=== PATIENT | female | born 1970 | race Caucasian/White ===

== ENCOUNTER 2017-06-15 07:33 | Inpatient (IN) | payer OTHER ==
[2017-05-18 11:18] VITALS: BMI 40.0
--- NOTE | 2017-05-18 11:44 | PAT Medication Instructions ---
Service Date May 18, 2017. Current Home Medication List Amlodipine Besylate-Benazepril (Lotrel), 1 CAP PO QAM Canagliflozin (Invokana), 1 TAB PO QAM Escitalopram Oxalate (Lexapro), 20 MG PO QAM Glipizide (Glipizide Er), 1 TAB PO QAM Hydrochlorothiazide (Hctz), 25 MG PO QAM Tramadol (Ultram), 50 MG PO Q8H PRN for Pain [vitamin pack], 1 DOSE PO DIRECTED Medication Instructions For Your Scheduled Surgery [vitamin pack], 1 DOSE PO DIRECTED (per surgeon instructions) - Hold the following medications the morning of surgery: Canagliflozin (Invokana), 1 TAB PO QAM Glipizide (Glipizide Er), 1 TAB PO QAM Hydrochlorothiazide (Hctz), 25 MG PO QAM - Take the following medications the morning of surgery with a sip of water: Tramadol (Ultram), 50 MG PO Q8H PRN for Pain (okay to take up to 4 hours prior to surgery if needed) Escitalopram Oxalate (Lexapro), 20 MG PO QAM Amlodipine Besylate-Benazepril (Lotrel), 1 CAP PO QAM - Take the following medications as scheduled the night before surgery: Tramadol (Ultram), 50 MG PO Q8H PRN for Pain (if needed) If you have any questions please call us at [phone] or [phone] or [phone]
--- NOTE | 2017-05-18 13:04 | DIAGNOSTIC IMAGING REPORT ---
CHEST 2 VIEWS ROUTINE CLINICAL HISTORY: Preoperative evaluation. COMPARISON STUDY: No previous studies for comparison. FINDINGS: Lung volumes are normal. No pneumothorax or pleural effusion is noted. Right costophrenic angle was not included. Pulmonary vascularity is normal. There is no consolidation. Cardiomediastinal silhouette is unremarkable. There are cholecystectomy clips. IMPRESSION: No acute cardiopulmonary findings. Electronically signed by: Amadou England M.D. 05/18/2017 1:03 PM Dictated Date/Time: 05/18/2017 1:02 PM
[2017-05-18 13:24] LABS: BASO % 0.4 %; BASO ABS # 0.03 K/uL (0-0.2); EOS % 4.3 %; EOS ABS # 0.31 K/uL (0-0.5); HEMATOCRIT 41.7 % (37-47); HEMOGLOBIN 14.5 g/dL (12.0-16.0); IG# 0.02 K/uL (0.00-0.02); LYMPH % 36.3 %; LYMPH ABS # 2.64 K/uL (1.2-3.4); MEAN CELL VOLUME 86.3 fL (80-100); MEAN CORPUSCULAR HGB CONC 34.8 g/dl (32-36); MONO % 6.9 %; NEUT % 51.8 %; NEUT ABS # 3.78 K/uL (1.4-6.5); PLATELET COUNT 347 K/uL (130-400); RED CELL DISTRIBUTION WIDTH CV 13.3 % (11.5-14.5); RED CELL DISTRIBUTION WIDTH SD 41.9 fL (36.4-46.3); WHITE BLOOD COUNT 7.28 K/uL (4.8-10.8)
[2017-05-18 13:34] LABS: INR 1.1 (0.9-1.1); PTT PATIENT 27.1 SECONDS (21.0-31.0)
[2017-05-18 13:36] LABS: ALBUMIN 3.8 gm/dl (3.4-5.0); CALCIUM 9.6 mg/dl (8.5-10.1); CREATININE 0.78 mg/dl (0.60-1.20)
[2017-05-18 14:04] LABS: HEMOGLOBIN A1C 7.1 % (4.5-5.6)
--- NOTE | 2017-06-01 15:37 | HISTORY & PHYSICAL EXAMINATION ---
DATE OF ADMISSION: 06/15/2017 CHIEF COMPLAINT: Right knee pain. HISTORY OF PRESENT ILLNESS: Ms. Dickens is a 47-year-old female with a multiple-year history of right knee pain. The patient rates her pain a 10/10. She has pain with her daily activities. She has limited standing and walking tolerance. Pain is worse with weightbearing. The patient has had injections, bracing, knee arthroscopy, PT and tramadol for the years without relief. She has failed conservative treatment and is scheduled for a right knee replacement. PAST MEDICAL HISTORY: Diabetes with unknown A1c and hypertension. The patient denies heart disease or DVT. PAST SURGICAL HISTORY: Meniscus repair, carpal tunnel release bilateral, x2, cholecystectomy. SOCIAL HISTORY: The patient denies alcohol or tobacco use. She lives in a 2-jazmine home. She is and works as a retail wireless sales consultant. FAMILY HISTORY: Negative for DVT. MEDICATIONS: Glipizide 10 mg, amlodipine 10/40 mg, hydrochlorothiazide 25 mg, escitalopram 20 mg, Invokana 100 mg, tramadol 50 mg, tramadol 50 mg. ALLERGIES: None. REVIEW OF SYSTEMS: See HPI. Ten other systems reviewed, all negative. PHYSICAL EXAMINATION: VITAL SIGNS: Height 5 feet 0 inches, weight 206 pounds, BMI 40. GENERAL: This is a well-developed, well-nourished female who is alert and oriented x3. Mood and affect are appropriate. HEENT: Normocephalic, atraumatic. Mucous membranes are moist and intact. NECK: Supple without lymphadenopathy. HEART: Regular rate and rhythm without murmurs, rubs or gallops. LUNGS: Clear to auscultation without wheezes or rhonchi. ABDOMEN: Soft and nontender. Bowel sounds are equal and active. EXTREMITIES: No ecchymosis, redness or warmth. The patient has a rash over her lower extremities that is scabbed. There is no drainage. The rash is located over the distal anterior tibia. Range of motion is from 3-110 degrees with no laxity. She has moderate effusion. She is neurovascularly intact. X-RAY EXAMINATION: AP and lateral views show joint space narrowing and osteophyte formation. IMPRESSION: 1. Degenerative joint disease, right knee. 2. Diabetes. PLAN: The patient will be admitted for a right total knee arthroplasty pending her A1c results due to her BMI, current rash and potentially high A1c. The patient is at high risk. If her A1c is above 7.5, she may be postponed until she has adequate glycemic control. Otherwise, we will plan on aspirin for DVT prophylaxis and outpatient physical therapy.
[~2017-06-15] VITALS: Ht 152.4 cm; Wt 94.0 kg
[2017-06-15] VITALS (9 sets, daily range): BP systolic 99–127; BP diastolic 62–79; PULSE 73–99; TEMP 36.7–37.2; O2SAT 93–98; BMI 40.0
[2017-06-15] MEDS: TRANEXAMIC ACID INJ 1,000 MG x 2 Bags IV SCH ×4 (06:30→10:55)
[~2017-06-15 07:33] MED LIST: ACETAMINOPHEN 500 MG TAB PO SCH; AMLO10CA2 PO; BUPIVACAINE 0.25% 30 ML VIAL ONE; BUPIVACAINE 0.5 % 5 MG/1 ML PF 10ML VIAL ONE; CANA1TAB PO; CEFAZOLIN 2000MG IV PUSH 15 ML IV SCH; CeleBREX 200 MG CAP PO SCH; DEXAMETHASONE 4 MG TAB PO SCH; ESCI1TAB10 PO; FAMOTIDINE 20 MG TAB PO SCH; FENTANYL CITRATE INJ 50 MCG/1 ML 2 ML VIAL ONE; GABAPENTIN 900 MG PO SCH; GLIP-199 PO; HYDR25TA4 PO; LACTATED RINGER'S 1000ML 1,000 ML IV SCH; LIDOCAINE HCL 2% 2 ML VIAL (20MG/ML) ONE; METOCLOPRAMIDE HCL 10 MG TAB PO SCH; MIDAZOLAM HCL 1 MG/ML 2ML VIAL ONE; ONDANSETRON INJ 2 MG/ML 2 ML VIAL ONE; PROPOFOL IV EMULSION 10 MG/ML 20 ML VIAL IV ONE; ROPIVACAINE 5MG/ML 30 ML 150 MG, BUPIVACAINE 0.5% MPF INJ 30 ML, EpINEphrine HCL INJ 0.... INFIL SCH; TRAM-10 PO; VITAMIN PACK PO
--- NOTE | 2017-06-15 08:52 | History & Physical Bridge Note ---
H&P Re-Evaluation Bridge Note: I have examined the patient, reviewed the History & Physical and in the interval since the performance of the History & Physical I have noted the following changes of clinical significance: No changes noted
[2017-06-15] MEDS ORDERED: POVIDONE-IODINE OP SOLN 30 ML BTL ONE (09:31)
[2017-06-15] MEDS ORDERED: ORTHO JOINT ANESTHETIC ONE (09:31)
[2017-06-15] MEDS ORDERED: BACITRACIN 50000 UNIT VIAL ONE (09:31)
[2017-06-15] MEDS ORDERED: FENTANYL CITRATE INJ 50 MCG/1 ML 2 ML VIAL IV PRN (10:30)
[2017-06-15] MEDS ORDERED: ATROPINE SULFATE 0.1 MG/ML 5ML SYR IV PRN (10:30)
[2017-06-15] MEDS ORDERED: EpHEDrine SULFATE INJ 50 MG/ML AMP IV PRN (10:30)
[2017-06-15] MEDS ORDERED: ONDANSETRON INJ 2 MG/ML 2 ML VIAL IV PRN ×2 (10:30→13:00)
[2017-06-15] MEDS ORDERED: SODIUM CHLORIDE 0.9% INJ 10 ML VIAL ONE (11:54)
[2017-06-15] MEDS ORDERED: EpINEphrine INJ 1MG/ML AMP 1 MG/ML AMP ONE (11:54)
[2017-06-15] MEDS ORDERED: PHENYLEPHRINE 100MCG/ML 5ML SYR ONE (12:33)
--- NOTE | 2017-06-15 12:34 | [facility] Post Operative Brief Note ---
Immediate Operative Summary Operative Date Jun 15, 2017. Pre-Operative Diagnosis Degenerative Joint Disease Right Knee Post-Operative Diagnosis Degenerative Joint Disease Right Knee Procedure(s) Performed Right Total Knee Arthroplasty Uncemented, patella cemented Surgeon Dr Girard Blankbook Forwarder Surgeon(s) Luis Vega PA-C Estimated Blood Loss 10cc Findings Consistent with Post-Op Diagnosis Specimens As Per Surgeon A. Right Knee Bone and Tissue Anesthesia Type MAC Spinal Regional Complication(s) none Disposition Accompanied Pt To Recover: no Disposition: Recovery Room / PACU
--- NOTE | 2017-06-15 12:42 | OPERATIVE REPORT ---
DATE OF OPERATION: 06/15/2017 PREOPERATIVE DIAGNOSIS: Osteoarthritis right knee. POSTOPERATIVE DIAGNOSIS: Osteoarthritis right knee. PROCEDURE: Right total knee arthroplasty. SURGEON: Dr. Girard. TRUCK REPAIR SERVICE ESTIMATOR: Luis Vega PA-C. ANESTHESIA: Spinal. COMPLICATIONS: None. OPERATION AND FINDINGS: Following induction of spinal anesthesia, the patient's right leg was prepped and draped in the usual sterile manner. Limb was exsanguinated with an Esmarch bandage and tourniquet was inflated to 350 mmHg. A longitudinal incision was made anteriorly. Subcutaneous tissue was sharply dissected. Electrocautery was used for hemostasis. Prepatellar bursa was incised and median parapatellar incision was performed. Patella was everted and the knee was flexed. Fat pad was removed to aid in visualization and the anterior and posterior cruciate ligaments were removed. The medial face of the tibia was cleared of soft tissue first with a Bovie and a Martinez elevator. This tissue was retracted posteriorly using a blunt Hohmann. A Willingham retractor was used to expose the synovium above on the anterior aspect of the femur and this was removed down to bone. The PSI guide was placed on the distal femur and two pins were placed anteriorly and kept in position and two additional pins were placed distally and removed. The distal femoral cutting block was placed in position and the distal femoral cut was used in the +0 setting. Next, the cutting block was removed and the 3 uncemented block was placed in the distal end of the femur. Care was taken to ensure appropriate external rotation and feeler gauge was used to ensure no notching would occur. The femoral block was centered on the distal femur and in the medial and lateral direction and was fixed using two bone screws. The gold pins were then removed. The oscillating saw was used to create the bone cuts and the distal femoral cutting block was removed and the reciprocating saw was used to further trim the femoral cuts as well as a deep in the area for the trochlear groove. Next, posterior condyle remnants were removed. Following this, a meniscal clamp and knife were utilized to remove the anterior portion of both medial and lateral meniscus. The proximal tibia PSI guide was placed into position and the proximal tibial cutting guide was screwed into position. The extra medullary alignment guide was utilized to ensure appropriate alignment. The proximal tibia was cut and the proximal tibial cutting block was removed and this bone fragment was removed. The appropriate guide was used to perform the notch cut on the distal femur and a lamina supervisor of operations and a cochlear knife were utilized to finish both medial and lateral meniscectomies to remove any remnants of the posterior or anterior cruciate ligaments. Following this, the distal femoral component was impacted into position and blunt Alee was used to sublux the tibia anteriorly. The proximal tibia was sized and a 2 uncemented tibial tray was chosen as the size to be used. This was put into position and appropriate external rotation and a double check with extramedullary alignment guide was performed. The canal for the tibial stem was prepared first with a 17 mm drill and then the punch and a mallet and the trial tibial poly was placed. A 9 was chosen the size to be used. It was brought to extension and the patella was prepared with the patellar reamer. A 33 cemented component was chosen the size to be used. The trial component was placed and knee was taken through a full range of motion and there was found to be no lateral subluxation of the tibia. No lateral release was required. The trials were all removed. The final components were obtained and assembled. Cement was mixed. The knee was thoroughly irrigated and the ortho mix was injected about the knee joint. The final components were cemented into position. After thoroughly suctioning and drying the bone ends, all excess cement was removed. The knee was held in extension while the cement hardened. The wound was irrigated and closed over a Hemovac drain. #1 Vicryl was used to close the extensor mechanism. Subcutaneous tissues closed using 0 Dexon. Skin was closed with marcia. Sterile dressing of Adaptic, 4 x 4's, sterile Webril, and Deepak was applied. The patient tolerated the procedure well, recovery room stable. Due to the complex nature of the procedure, the entire surgery was performed with the operational assistance of Luis Vega PA-C. The public services assistant, under direct supervision, was involved in the actual performance of all aspects of the surgical procedure including hemostasis, tissue retraction and incision, instrument management, patient positioning, and wound closure. I attest to the content of the Intraoperative Record and any orders documented therein. Any exception s are noted below.
[2017-06-15] MEDS ORDERED: METOCLOPRAMIDE HCL INJ 5 MG/ML 2 ML VIAL IV PRN (13:00)
[2017-06-15] MEDS ORDERED: CEFAZOLIN IV 2,000 MG in DEXTROSE 5% 50ML 50 ML IV SCH (13:00)
[2017-06-15] MEDS ORDERED: MoRPHine SULFATE 2 MG/ML CARP IV PRN (13:00)
[2017-06-15] MEDS ORDERED: ALUMINUM/MAGNESIUM/SIMETH (MAALOX MAX) 30 ML UDC PO PRN (13:00)
[2017-06-15] MEDS ORDERED: MAGNESIUM HYDROXIDE SUSP 30 ML UDC PO PRN (13:00)
[2017-06-15] MEDS ORDERED: ZOLPIDEM TARTRATE 5 MG TAB PO PRN (13:00)
--- NOTE | 2017-06-15 13:33 | DIAGNOSTIC IMAGING REPORT ---
R KNEE 1 OR 2 VIEWS ROUTINE CLINICAL HISTORY: AP/LATERAL IN PACU RIGHT KNEE COMPARISON: None. DISCUSSION: Evidence for a total right knee arthroplasty. Good contact between prosthetic and underlying bone. Surgical drains are in position. Expected soft tissue postoperative change IMPRESSION: Anatomic alignment posttotal right knee arthroplasty. The above report was generated using voice recognition software. It may contain grammatical, syntax or spelling errors. Electronically signed by: Randall Javed M.D. 06/15/2017 1:31 PM Dictated Date/Time: 06/15/2017 1:31 PM
[2017-06-15] MEDS ORDERED: PHARMACY GLYCEMIC MGMT CONSULT PRN (14:10)
[2017-06-15] MEDS ORDERED: DEXTROSE 50% 50 ML SYR IV PRN (14:15)
[2017-06-15] MEDS ORDERED: GLUCOSE 10 TABS/TUBE PO PRN (14:15)
[2017-06-15] MEDS ORDERED: GLUCAGON FOR INJ 1 MG VIAL SQ PRN (14:15)
[2017-06-15] MEDS ORDERED: GLUCOSE 40% GEL 15 GM TUBE PO PRN (14:15)
--- NOTE | 2017-06-15 14:24 | Anesthesiology Progress Note ---
Anesthesia Post Op Note Date & Time Jun 15, 2017 at 14:24 Vital Signs Pain Intensity: 0 Vital Signs Past 12 Hours Date Time Temp Pulse Resp B/P (MAP) Pulse Ox O2 Delivery O2 Flow Rate FiO2 06/15/17 14:10 83 16 105/62 96 Nasal Cannula 2 06/15/17 13:55 90 18 104/50 95 Nasal Cannula 2 06/15/17 13:40 88 18 109/65 95 Nasal Cannula 2 06/15/17 13:25 37.0 82 21 100/61 96 Nasal Cannula 2 06/15/17 13:15 9 17 106/61 96 Nasal Cannula 2 06/15/17 13:05 93 19 97/56 95 Nasal Cannula 2 06/15/17 12:59 37.0 97 16 98/51 95 Nasal Cannula 2 06/15/17 08:25 36.8 73 20 127/79 95 Room Air Notes Mental Status: alert / awake / arousable, participated in evaluation Pt Amnestic to Procedure: Yes Nausea / Vomiting: adequately controlled Pain: adequately controlled Airway Patency, RR, SpO2: stable & adequate BP & HR: stable & adequate Hydration State: stable & adequate Neuraxial Anesthesia: was administered, sensory block is resolving Anesthetic Complications: no major complications apparent
[2017-06-15] MEDS ORDERED: INSULIN GLARGINE SOLOSTAR 100 UNITS/ML 3 ML PEN SC SCH (15:00)
[2017-06-15] MEDS ORDERED: MoRPHine SULFATE 4 MG/ML 1 ML CARP\\VIAL IV PRN (15:00)
--- NOTE | 2017-06-15 15:29 | Pharmacy Progress Note ---
Glycemic Control Intl Consult Date of Service Jun 15, 2017. Scope Glycemic Pharmacist consulted by Luis Vega on 06/15/17 for glycemic control and to write orders per [facility] inpatient glycemic control protocol Objective Weight (Kilograms): 94.000 Accuchecks BSG (last 24hrs): Test 06/15/17 08:02 06/15/17 13:05 06/15/17 15:02 Bedside Glucose 132 mg/dl (70-90) 171 mg/dl (70-90) 199 mg/dl (70-90) Recent Pertinent Medications Outpatient Anti-diabetic Regimen: * Invokana 100 mg PO daily + Glipizide XR 10 mg PO daily * A1c = 7.1 % 05/18/17 Risk Factors for Insulin Resistance: * Steroids: dexamethasone 8 mg PO prior to surgery * Recent Surgery: POD 0 for knee surgery * Diet: Type 2 diabetic diet Assessment & Plan ASSESSMENT: * Ms Dickens is a 47 y/o F admitted for knee surgery. She has a PMH of reasonably controlled type 2 diabetes. The patient received 8 mg of dexamethasone prior to surgery. Her blood sugar prior to surgery was 132 mg/dL. Her HbA1C is reasonably well controlled. * Will schedule full weight-based stress of 2 Lantus dosing for tonight then determine tomorrow's Lantus dose based upon response. Will not give additional Lantus dose tonight since patient is receiving Lantus dose late today. Novolog will be weight-based stress of 3 with overnight acchuchecks. * Pt is maintained on oral antidiabetic agents as an outpatient * Oral agents are not recommended for inpatient use d/t drug interactions, changing PO intake, and difficulty titrating for acute hyper/hypoglycemia. ADA recommends re-initiating outpatient oral agents 1-2 days prior to discharge if/ when appropriate if they were held on admission. * Will hold oral agents for admission and utilize SQ basal bolus insulin regimen which is the recommended regimen for inpatient glycemic control. * Will initiate weight based insulin dosing for insulin le patient and titrate based on BSG trends. PLAN FOR INPATIENT GLYCEMIC CONTROL: * Holding outpatient oral diabetes medications * Basal insulin with LANTUS 32 units SQ x 1 * Correctional Insulin with NOVOLOG per scale ACHS or Q6hrs while NPO * Goal Range: Low 110 mg/dL - High 140 mg/dL * Correction Factor: 15 mg/dL/unit * Nutritional / Prandial insulin per carb ratio of 1 unit per 6 grams CHO consumed * Please note that the plan above was derived based on current level of insulin resistance and hospital stress. These recommendations are appropriate for inpatient admission only. Plan of care upon discharge will need to be reassessed to avoid potential outpatient hypo/hyperglycemia. Thank you.
[2017-06-15] MEDS: INSULIN ASPART 100 UNITS/ML 3 ML PEN SC SCH ×3 (16:19→22:07)
[2017-06-15] MEDS: ACETAMINOPHEN 500 MG TAB PO SCH ×2 (16:21→21:58)
[2017-06-15] MEDS: SODIUM CHLORIDE 0.9% 1000ML 1,000 ML IV SCH (16:22)
[2017-06-15] MEDS: KETOROLAC TROMETHAMINE 30 MG/ML VIAL IV. SCH ×2 (16:22→21:58)
[2017-06-15] MEDS: FERROUS GLUCONATE 324 MG TAB PO SCH (18:46)
[2017-06-15] MEDS: CEFAZOLIN IV 2,000 MG in SYRINGE 0 ML IV SCH (20:39)
[2017-06-15] MEDS: OXYCODONE HCL IR 5 MG TAB (IMMEDIATE RELEASE) PO PRN ×2 (20:39→21:57)
[2017-06-15] MEDS: DOCUSATE SODIUM 100 MG CAP PO SCH (21:55)
[2017-06-15] MEDS: ASPIRIN 81 MG ECTAB PO SCH (21:55)
[2017-06-16] MEDS: INSULIN ASPART 100 UNITS/ML 3 ML PEN SC SCH ×4 (00:03→12:31)
[2017-06-16] MEDS: SODIUM CHLORIDE 0.9% 1000ML 1,000 ML IV SCH ×2 (00:05→10:23)
[2017-06-16 03:05] VITALS: BP 109/67; PULSE 77; TEMP 36.7; O2SAT 96
[2017-06-16] MEDS: KETOROLAC TROMETHAMINE 30 MG/ML VIAL IV. SCH ×2 (04:00→09:54)
[2017-06-16] MEDS: CEFAZOLIN IV 2,000 MG in SYRINGE 0 ML IV SCH (04:00)
[2017-06-16] MEDS: ACETAMINOPHEN 500 MG TAB PO SCH ×2 (05:37→13:29)
[2017-06-16 07:22] LABS: HEMATOCRIT 32.7 % (37-47); HEMOGLOBIN 11.1 g/dL (12.0-16.0); MEAN CELL VOLUME 86.7 fL (80-100); MEAN CORPUSCULAR HEMOGLOBIN 29.4 pg (25-34); MEAN CORPUSCULAR HGB CONC 33.9 g/dl (32-36); MEAN PLATELET VOLUME 8.9 fL (7.4-10.4); PLATELET COUNT 297 K/uL (130-400); RED CELL DISTRIBUTION WIDTH CV 12.9 % (11.5-14.5); RED CELL DISTRIBUTION WIDTH SD 41.3 fL (36.4-46.3); WHITE BLOOD COUNT 12.87 K/uL (4.8-10.8)
[2017-06-16] MEDS ORDERED: DEXAMETHASONE INJ 10 MG in SYRINGE 0 ML IV SCH (07:30)
[2017-06-16] MEDS ORDERED: INSULIN GLARGINE SOLOSTAR 100 UNITS/ML 3 ML PEN SC ONE (07:45)
[2017-06-16 07:58] LABS: CREATININE 0.82 mg/dl (0.60-1.20); POTASSIUM 3.8 mmol/L (3.5-5.1)
[2017-06-16 08:09] VITALS: BP 96/57; PULSE 66; TEMP 36.8; O2SAT 96
[2017-06-16 08:35] VITALS: BP 107/68; PULSE 68
[2017-06-16] MEDS: ASPIRIN 81 MG ECTAB PO SCH (08:36)
[2017-06-16] MEDS: DOCUSATE SODIUM 100 MG CAP PO SCH (08:37)
[2017-06-16] MEDS: FERROUS GLUCONATE 324 MG TAB PO SCH ×2 (08:37→12:30)
--- NOTE | 2017-06-16 08:55 | Orthopedic Progress Note ---
Orthopedic Progress Note Date of Service Jun 16, 2017. Subjective Post OP Day: 1 Reports: feeling well Objective N/V intact, dressing C/D/I (Hemovac in place), toes mobile Date Time Temp Pulse Resp B/P (MAP) Pulse Ox O2 Delivery O2 Flow Rate FiO2 06/16/17 08:09 36.8 66 16 96/57 (70) 96 Room Air 06/16/17 03:05 36.7 77 16 109/67 (81) 96 Room Air 06/16/17 00:00 Room Air 06/15/17 23:25 36.7 78 16 106/70 (82) 93 Room Air 06/15/17 19:00 37.0 99 18 101/66 (78) 93 Room Air 06/15/17 17:36 36.8 91 18 113/71 (85) 96 Nasal Cannula 2.0 06/15/17 16:29 36.8 92 16 101/63 (76) 98 Nasal Cannula 2.0 06/15/17 16:00 96 Nasal Cannula 2.0 06/15/17 15:30 36.8 82 17 99/62 (74) 96 Nasal Cannula 2.0 06/15/17 15:00 37.0 89 18 102/65 (77) 96 Nasal Cannula 2.0 06/15/17 14:34 95 Nasal Cannula 2.0 06/15/17 14:30 Nasal Cannula 2.0 06/15/17 14:28 37.2 83 18 106/65 (79) 95 Nasal Cannula 2.0 06/15/17 14:10 83 16 105/62 96 Nasal Cannula 2 06/15/17 13:55 90 18 104/50 95 Nasal Cannula 2 06/15/17 13:40 88 18 109/65 95 Nasal Cannula 2 06/15/17 13:25 37.0 82 21 100/61 96 Nasal Cannula 2 06/15/17 13:15 9 17 106/61 96 Nasal Cannula 2 06/15/17 13:05 93 19 97/56 95 Nasal Cannula 2 06/15/17 12:59 37.0 97 16 98/51 95 Nasal Cannula 2 Laboratory Results 24 Hours: Test 06/16/17 06:55 Hematocrit 32.7 % Hemoglobin 11.1 g/dL Assessment & Plan Assessment: 47 yo female stable POD #1 s/p right TKA Plan: 1. Med management 2. DVT prophylaxis- ASA, SCDs 3. PT/OT 4. D/C planning- home w/ HH
[2017-06-16] MEDS ORDERED: RXC5 PO (08:57)
[2017-06-16] MEDS ORDERED: ACET-24 PO (08:57)
[2017-06-16] MEDS ORDERED: ASPEC81 PO (08:57)
--- NOTE | 2017-06-16 08:58 | Discharge Instructions ---
Discharge Instructions Date of Service Jun 16, 2017. Admission Reason for Admission: Right Knee Osteoarthritis Discharge Discharge Diagnosis / Problem: Right knee arthritis Discharge Goals Goal(s): Decrease discomfort, Improve function Activity Recommendations Activity Limitations: as noted below Weightbearing Status: Right weightbearing (as tolerated) . Instructions / Follow-Up Instructions / Follow-Up ACTIVITY RECOMMENDATIONS: SELF CARE INSTRUCTIONS AFTER TOTAL KNEE REPLACEMENT A. You may need to continue a physical therapy program after discharge from the hospital. There are several options available to you. Your doctor will assist you in selecting the best one for you. 1. An out-patient facility 2 to 3 times a week for therapy or home therapy. 2. Continue working on all exercises taught to you in the hospital. Your goals should be to increase bending of your knee to 90 degrees and beyond and to fully straighten your knee. B. You may progress at your own pace from walking with a walker or crutches to a cane; then to no assistive devices. C. Make walking a part of your daily routine. Be up as much as comfortable with rest periods throughout the day. Rest with leg elevation is very important. Use the ice wrap frequently for the first 3-4 weeks. D. There are no restrictions on activities. You may ride in a car, shop, participate in strategy consultant and all social activities. E. Wear the long elastic stockings (ROXANA hose) 20 hours a day for 2 weeks after surgery. They can be removed several times a day for laundering and for a bath. F. You may shower, no tub baths until cleared by your doctor. SPECIAL CARE INSTRUCTIONS: VERY IMPORTANT TO READ AND REVIEW A. There are a few signs you need to watch for after you are home. Call [facility] if you notice any of the followin. Increased severe knee pain. Some pain is expected especially when you exercise. 2. Increased swelling in your leg or knee; pain or swelling of the calf muscle in either lower leg. 3. Any fluid drainage from the incision. 4. Shortness of breath or chest pain. B. Please call [facility] at if you have any concerns or questions about your operation or recovery. The doctor or his nurse will return your call promptly. C. You must take antibiotics before dental work, bladder, bowel or other surgery. Your doctor will provide you with a permanent care to carry describing this precaution. IMPORTANT: * REMEMBER TO TAKE ASPIRIN, 81 MG, TWICE DAILY FOR 4 WEEKS UNLESS OTHERWISE DIRECTED. THIS IS YOUR BLOOD THINNER. * HIGH RISK PATIENTS MAY BE PRESCRIBED A STRONGER BLOOD THINNER. THIS WILL BE PROVIDED AT DISCHARGE. * CALL IF INCREASED PAIN, REDNESS, DRAINAGE OR FEVER GREATER THAT 101. * WEAR ROXANA HOSE 20 HOURS PER DAY FOR 2 WEEKS. Silverlon- This is a large adhesive bandage that contains silver ions. This helps your incision heal by fighting off bacteria and protecting it from the outside environment. You are permitted to shower with this dressing. This will remain on your incision for 7 days and then should be removed. Some visible blood or drainage through the dressing window is normal. If there is significant drainage or leaking noted before the 7 days notify your doctor's office immediately. Once removed, keep incision clean and dry. If there is any drainage or redness noted, please call your surgeon. Maintain Zipline closure when removing Silverlon. FOLLOW UP VISIT: If appointment is not already scheduled: Please call [facility] to make a follow-up appointment for 2 weeks after your surgery at . Current Hospital Diet Patient's current hospital diet: Diabetes Type 2 Diet Discharge Diet Recommended Diet: Diabetes Type 2 Diet Procedures Procedures Performed: Right Total Knee Arthroplasty Uncemented, patella cemented Pending Studies Studies pending at discharge: no Laboratory Results Hemoglobin A1c Test 05/18/17 11:51 Range/Units Estimated Average Glucose 157 mg/dl Hemoglobin A1c 7.1 H 4.5-5.6 % Medical Emergencies . Who to Call and When: Medical Emergencies: If at any time you feel your situation is an emergency, please call 911 immediately. . Non-Emergent Contact Non-Emergency issues call your: Surgeon Call Non-Emergent contact if: temperature is above 101.5, your pain is not controlled, wound has increased drainage, wound has increased redness . "Provider Documentation" section prepared by Luis Vega PA-C. . [place] Drug Monitoring Program Search Results: patient reviewed within database, no issues identified
[2017-06-16] MEDS ORDERED: AMLODIPINE BESYLATE 5 MG TAB PO SCH (09:00)
[2017-06-16] MEDS ORDERED: AMLODIPINE BESYLATE BENAZEPRIL PO SCH (09:00)
[2017-06-16] MEDS ORDERED: MULTIVITAMIN TAB PO SCH (09:00)
[2017-06-16] MEDS ORDERED: PANTOprazole SOD 40 MG TAB PO SCH (09:00)
[2017-06-16] MEDS ORDERED: ESCITALOPRAM OXALATE 20 MG TAB PO SCH (09:00)
[2017-06-16] MEDS ORDERED: NON-FORMULARY MEDICATION (Glipizide (Glipizide Er) 1 TAB) PO SCH (09:00)
[2017-06-16] MEDS ORDERED: ENALAPRIL MALEATE 10 MG TAB PO SCH (09:00)
[2017-06-16] MEDS ORDERED: NON-FORMULARY MEDICATION (Canagliflozin (Invokana) 1 TAB) PO SCH (09:00)
--- NOTE | 2017-06-16 09:45 | Anesthesiology Progress Note ---
Anesthesia Post Op Note Date & Time Jun 16, 2017 at 09:44 Vital Signs Pain Intensity: 0.0 Vital Signs Past 12 Hours Date Time Temp Pulse Resp B/P (MAP) Pulse Ox O2 Delivery O2 Flow Rate FiO2 06/16/17 08:35 68 107/68 (81) 06/16/17 08:09 36.8 66 16 96/57 (70) 96 Room Air 06/16/17 07:30 Room Air 06/16/17 03:05 36.7 77 16 109/67 (81) 96 Room Air 06/16/17 00:00 Room Air 06/15/17 23:25 36.7 78 16 106/70 (82) 93 Room Air Notes Mental Status: alert / awake / arousable, participated in evaluation Pt Amnestic to Procedure: Yes Nausea / Vomiting: adequately controlled Pain: adequately controlled Airway Patency, RR, SpO2: stable & adequate BP & HR: stable & adequate Hydration State: stable & adequate Neuraxial Anesthesia: sensory block resolved Anesthetic Complications: no major complications apparent
--- NOTE | 2017-06-16 10:34 | Pharmacy Progress Note ---
Pharmacy Glycemic Short Note 2 Date of Service Jun 16, 2017. OUTPATIENT ANTIDIABETIC REGIMEN: * invokana 100 mg PO daily and glipizide XL 10 mg QD ASSESSMENT: * Ms Dickens is a 47 y/o F admitted for knee surgery. She has a PMH of reasonably controlled type 2 diabetes. The patient received 8 mg of dexamethasone orally prior to surgery and then 10 mg of dexamethasone IV today. * Patient received 52 units of insulin yesterday (35 units of basal) and an additional 8 units overnight. Blood sugars were 132 (prior to surgery)-171-199- 273 (not 2 hours after lunch Novolog given)-186. Overnight blood sugars were 197 -140 mg/dL. Fasting is 154 mg/dL this morning. Due to IV dexamethasone dose, will give between weight-based stress of 2 and 3 of Lantus with scale for this evening (over 0.4 units/kg). Appears patient is relatively sensitive to insulin. For Novolog, tightened slightly as the patient did trend upwards yesterday and especially secondary to IV dexamethasone. * Pt is maintained on oral antidiabetic agents as an outpatient * Oral agents are not recommended for inpatient use d/t drug interactions, changing PO intake, and difficulty titrating for acute hyper/hypoglycemia. ADA recommends re-initiating outpatient oral agents 1-2 days prior to discharge if/ when appropriate if they were held on admission. * Will hold oral agents for admission and utilize SQ basal bolus insulin regimen which is the recommended regimen for inpatient glycemic control. * Will initiate weight based insulin dosing for insulin le patient and titrate based on BSG trends. PLAN FOR INPATIENT GLYCEMIC CONTROL: * Hold outpatient oral diabetes medications * Basal insulin * Lantus 40 units SQ this morning then then 10 units tonight if BSG 120-180 mg/ dL / 20 units tonight if BSG greater than 180 mg/dL * Bolus insulin * NovoLog per scale ACHS or Q6hrs while NPO * Goal Range: Low 110 mg/dL - High 140 mg/dL * Correction Factor: 10 mg/dL/unit * Nutritional / Prandial insulin per carb ratio of 1 unit per 3 grams CHO consumed PLAN FOR DISCHARGE: * Ms Dickens's HbA1C is relatively controlled but could be improved. Recommend titration upwards on home medications as tolerated. Uncertain why patient is not on metformin. Recommend starting this agent as is considered first line.
[2017-06-16 12:02] VITALS: Ht 152.4 cm; Wt 94.0 kg
[2017-06-16 12:09] VITALS: BP 111/69; PULSE 63; TEMP 37.1; O2SAT 96
[2017-06-16 15:00] VITALS: BP 111/69; PULSE 63; TEMP 37.1; O2SAT 96
[2017-06-16] MEDS: OXYCODONE HCL IR 5 MG TAB (IMMEDIATE RELEASE) PO PRN (16:02)
[2017-06-16] MEDS ORDERED: INSULIN GLARGINE SOLOSTAR 100 UNITS/ML 3 ML PEN SC SCH (21:00)
[2017-06-17] MEDS ORDERED: INSULIN ASPART 100 UNITS/ML 3 ML PEN SC SCH (02:00)
== END 2017-06-16 16:30 | disposition home health service (06) | DRG 470 ==
LOC: C.ACU 07:33 → C.3E 13:05 → ENRESERV 13:24
PROC: 0SRC0J9 Replacement of Right Knee Joint with Synthetic Substitute, Cemented, Open Approach (ICD-10-PCS; principal; 2017-06-15 10:00)
DX: M17.11 Unilateral primary osteoarthritis, right knee (principal); E11.9 Type 2 diabetes mellitus without complications; I10 Essential (primary) hypertension; Z79.899 Other long term (current) drug therapy